=== PATIENT | male | born 1975 | race Caucasian/White ===

== ENCOUNTER 2020-11-12 05:47 | Emergency (ER) | payer BC ==
[~2020-11-12] VITALS: Ht 182.9 cm; Wt 169.0 kg
--- NOTE | 2020-11-12 08:15 | NUR ---
ASSUMED PT CARE AT THIS TIME. JONATHON ZAMUDIO AT BEDSIDE, PT ASSESSMENT AND POC DISCUSSED AND ORDERS REC'D. BP AND SP02 MONITORING PLACED. CALL LIGHT W/I REACH. VSS AND NAD NOTED.
[2020-11-12 08:46] LABS: BASOPHILS % (AUTO) 0 % (0-1); EOSINOPHILS % (AUTO) 2 % (1-7); LYMPHOCYTES % (AUTO) 18 % (22-44); MEAN CORPUSCULAR HEMOGLOBIN 28.3 pg (27.5-34.5); MEAN CORPUSCULAR HGB CONC 33.8 g/dL (33.2-36.2); MEAN PLATELET VOLUME 7.7 fL (7.4-10.4); MONOCYTES % (AUTO) 8 % (2-9); NEUTROPHILS % (AUTO) 72 % (42-75); PLATELET COUNT 229 x10^3/uL (130-400); RED BLOOD COUNT 5.09 x10^6/uL (4.38-5.82); RED CELL DISTRIBUTION WIDTH 13.6 % (9.4-14.8)
[2020-11-12 08:54] LABS: ALANINE AMINOTRANSFERASE 31 U/L (12-78); ALBUMIN 3.8 g/dL (3.4-5.0); CALCIUM 8.8 mg/dL (8.5-10.1); CREATININE 1.02 mg/dL (0.7-1.3)
[2020-11-12 08:56] LABS: ALKALINE PHOSPHATASE 63 U/L (45-117); BILIRUBIN,TOTAL 0.7 mg/dL (0.2-1.0); TOTAL PROTEIN 8.2 g/dL (6.4-8.2)
[2020-11-12 09:07] LABS: CHLORIDE 105 mmol/L (98-107)
[2020-11-12 09:08] LABS: ANION GAP 7 mmol/L (5-15)
--- NOTE | 2020-11-12 09:32 | NUR ---
ALL TEST RESULTED, CHART UP FOR RECHECK, VSS. PT AWARE.
[2020-11-12 11:09] VITALS: BP 150/96
--- NOTE | 2020-11-12 11:09 | NUR ---
PT SITTING UP ON GURNEY, NO ACUTE DISTRESS NOTED. NO IV TO DC. REVIEWED DC INSTRUCTIONS WITH PT. UNDERSTANDING VERBLIZED. PT DECLINED W/C. LEFT AMB, GAIT STEADY.
== END 2020-11-12 11:11 | disposition home or self-care (01) ==
LOC: ED 09:31
DX: I82.401 Acute embolism and thrombosis of unspecified deep veins of right lower extremity (principal)
CPT/HCPCS: 36415; 80053; 85025; 99284